=== PATIENT | male | born 1985 | race Caucasian/White ===

== ENCOUNTER 2024-01-15 08:43 | Outpatient (CLI) | payer BC | END 2024-01-15 08:44 | disposition home or self-care (01) | LOC: CSHSLEEP 08:43 | PROVIDERS: ATTEND Specialist | DX: G47.33 Obstructive sleep apnea (adult) (pediatric) (principal); R53.83 Other fatigue; R09.89 Other specified symptoms and signs involving the circulatory and respiratory systems; F32.A Depression, unspecified; I10 Essential (primary) hypertension | CPT/HCPCS: 95810 ==